=== PATIENT | male | born 1950 | race Two or more races ===

== ENCOUNTER 2017-12-29 11:16 | Inpatient (IN) | payer OTHER ==
[~2017-12-29] VITALS: Ht 162.6 cm; Wt 61.3 kg
[2017-12-29 12:10] LABS: Basophils # (auto) 0 uL; Basophils % (auto) 0.2 % (0.0-2.0); Eosinophils # (auto) 0.2 uL; Eosinophils % (auto) 4.1 % (0.0-7.0); Hemoglobin 11.3 g/dL (13.5-17.5); Lymphocytes # (auto) 0.5 uL; Lymphocytes % (auto) 12.7 % (10.0-50.0); Mean Corpuscular Hemoglobin 29.6 pg (28.0-32.0); Mean Corpuscular Hgb Conc. 32.4 g/dL (32.0-36.0); Mean Corpuscular Volume 91.4 fL (80.0-100.0); Monocytes # (auto) 0.4 uL; Monocytes % (auto) 10.2 % (0.0-12.0); Neutrophils # (auto) 2.9 uL; Neutrophils % (auto) 72.8 % (37.0-80.0); Platelet Count (auto) 123 10^3/uL (140-450); Red Blood Cells 3.83 10^6/uL (4.5-5.90); Red Cell Distribution Width 16.2 % (11.8-14.3)
[2017-12-29 12:22] LABS: Partial Thromboplastin Time 59.9 sec (22.64-33.71); Prothrombin Time 10.9 sec (9.37-12.3)
[2017-12-29 12:23] LABS: Albumin 3.3 g/dL (3.4-5.0); BUN/Creatinine Ratio 10.7; Calcium 8.6 mg/dL (8.5-10.1); Potassium 4.8 mmol/L (3.5-5.1)
[2017-12-29 12:25] LABS: Bilirubin, Total 0.4 mg/dL (0.2-1.0); Total Protein 7.8 g/dL (6.4-8.2)
[2017-12-29] MEDS ORDERED: FUROSEMIDE 100 MG/10ML VIAL IV ONE (15:00)
[2017-12-29] MEDS ORDERED: cloNIDine HCL 0.1 MG TAB PO ONE (15:00)
[2017-12-29] MEDS ORDERED: MORPHINE SULFATE 4 MG/ML SYR/VIAL IV PRN ×2 (15:00)
[2017-12-29] MEDS ORDERED: NITROGLYCERIN 0.4 MG SL TAB SL PRN (15:00)
[2017-12-29] MEDS ORDERED: PROMETHAZINE HCL 25 MG/ML 1ML IV PRN (15:00)
[2017-12-29] MEDS ORDERED: hydrALAZINE HCL 20 MG/ML VL IV PRN (15:00)
[2017-12-29] MEDS: CALCIUM ACETATE 667 MG CAP PO SCH (18:09)
[2017-12-29 20:30] VITALS: BP 150/83
[2017-12-29] MEDS: cloNIDine HCL 0.1 MG TAB PO SCH (21:36)
[2017-12-29 22:00] VITALS: BP 150/83
[2017-12-30 05:00] VITALS: BP 138/84
[2017-12-30 06:04] LABS: Calcium 8.6 mg/dL (8.5-10.1)
[2017-12-30 06:15] LABS: BUN/Creatinine Ratio 11.4
[2017-12-30 06:19] LABS: Potassium 5.7 mmol/L (3.5-5.1)
[2017-12-30] MEDS: CALCIUM ACETATE 667 MG CAP PO SCH ×3 (08:09→20:06)
[2017-12-30 08:18] VITALS: BP 151/91
[2017-12-30] MEDS ORDERED: CATHFLO ACTIVASE (ALTEPLASE) 2 MG VIAL IV ONE (08:45)
[2017-12-30] MEDS ORDERED: LIDOCAINE 2%HCL (LOCAL ANESTH.) INJ 20ML MDV ONE (10:31)
[2017-12-30] MEDS: B-COMPLEX W/ C & FOLIC ACID(NEPHROVITE TAB) PO SCH (10:45)
[2017-12-30] MEDS: cloNIDine HCL 0.1 MG TAB PO SCH ×2 (11:14→21:41)
[2017-12-30] MEDS ORDERED: fentaNYL CITRATE 100 MCG/2 ML VL ONE (12:50)
[2017-12-30] MEDS ORDERED: MIDAZOLAM HCL 1MG/1ML-2 ML VIAL ONE (12:50)
[2017-12-30] MEDS ORDERED: ceFAZolin 1GM/100ML 100 ML IV ONE (13:01)
[2017-12-30] MEDS ORDERED: IODIXANOL 320MG/ML 100ML BTL IV ONE (13:33)
[2017-12-30] MEDS ORDERED: HEPARIN SODIUM (PORCINE) 5000 UNITS/ML 1ML VIAL ONE (13:45)
[2017-12-30] MEDS ORDERED: EPOETIN ALFA 10,000 UNIT/1 ML VIAL IV ONE (15:15)
[2017-12-30 17:00] VITALS: BP 140/87
[2017-12-30 19:38] VITALS: BP 114/71
[2017-12-30] MEDS: HYDROcodone-ACET 5/325MG TAB PO PRN (20:06)
[2017-12-30 22:00] VITALS: BP 121/67
[2017-12-31] VITALS (7 sets, daily range): BP systolic 123–137; BP diastolic 71–82
[2017-12-31 07:11] LABS: Basophils # (auto) 0 uL; Basophils % (auto) 0.3 % (0.0-2.0); Eosinophils # (auto) 0.2 uL; Eosinophils % (auto) 4.3 % (0.0-7.0); Hematocrit 33.1 % (41.0-53.0); Hemoglobin 10.9 g/dL (13.5-17.5); Lymphocytes # (auto) 0.5 uL; Lymphocytes % (auto) 12.6 % (10.0-50.0); Mean Corpuscular Hemoglobin 30.2 pg (28.0-32.0); Mean Corpuscular Volume 91.6 fL (80.0-100.0); Monocytes # (auto) 0.6 uL; Monocytes % (auto) 16.7 % (0.0-12.0); Neutrophils # (auto) 2.4 uL; Neutrophils % (auto) 66.1 % (37.0-80.0); Nucleated Red Blood Cells % 0.3 %; Platelet Count (auto) 93 10^3/uL (140-450); Red Blood Cells 3.62 10^6/uL (4.5-5.90); Red Cell Distribution Width 15.9 % (11.8-14.3); White Blood Cell 3.6 10^3/uL (4.4-10.8)
[2017-12-31 07:15] LABS: BUN/Creatinine Ratio 9.9; Calcium 8.3 mg/dL (8.5-10.1); Potassium 5.1 mmol/L (3.5-5.1)
[2017-12-31] MEDS: CALCIUM ACETATE 667 MG CAP PO SCH ×3 (08:06→18:25)
[2017-12-31] MEDS: cloNIDine HCL 0.1 MG TAB PO SCH ×2 (09:45→21:55)
[2017-12-31] MEDS: B-COMPLEX W/ C & FOLIC ACID(NEPHROVITE TAB) PO SCH (09:46)
[2017-12-31] MEDS: HYDROcodone-ACET 5/325MG TAB PO PRN (21:55)
[2018-01-01 05:35] VITALS: BP 114/67
[2018-01-01] MEDS: CALCIUM ACETATE 667 MG CAP PO SCH ×2 (08:41→12:00)
[2018-01-01 09:00] VITALS: BP 111/66
[2018-01-01] MEDS: cloNIDine HCL 0.1 MG TAB PO SCH (10:25)
[2018-01-01] MEDS: B-COMPLEX W/ C & FOLIC ACID(NEPHROVITE TAB) PO SCH (10:26)
[2018-01-01 10:33] LABS: BUN/Creatinine Ratio 8.6; Calcium 8.1 mg/dL (8.5-10.1); Potassium 4.7 mmol/L (3.5-5.1)
[2018-01-01] MEDS: HYDROcodone-ACET 5/325MG TAB PO PRN (10:41)
[2018-01-01 13:00] VITALS: BP 114/64
== END 2018-01-01 14:10 | disposition home or self-care (01) | DRG 466 ==
LOC: ER 11:16 → OVERFLOW 11:17 → WEST WING 20:15 → TELE-WESTW 12-30 00:26
PROVIDERS: ADMIT Internal Medicine; ATTEND Internal Medicine
PROC: 5A1D70Z Performance of Urinary Filtration, Intermittent, Less than 6 Hours Per Day (ICD-10-PCS; principal; 2017-12-30)
PROC: 06PYX3Z Removal of Infusion Device from Lower Vein, External Approach (ICD-10-PCS; 2017-12-30)
PROC: 06HM33Z Insertion of Infusion Device into Right Femoral Vein, Percutaneous Approach (ICD-10-PCS; 2017-12-30)
PROC: 5A1D70Z Performance of Urinary Filtration, Intermittent, Less than 6 Hours Per Day (ICD-10-PCS; 2017-12-31)
DX: T82.41XA Breakdown (mechanical) of vascular dialysis catheter, initial encounter (principal); N18.6 End stage renal disease; I50.43 Acute on chronic combined systolic (congestive) and diastolic (congestive) heart failure; N25.81 Secondary hyperparathyroidism of renal origin; E11.22 Type 2 diabetes mellitus with diabetic chronic kidney disease; E87.5 Hyperkalemia; E87.70 Fluid overload, unspecified; I13.2 Hypertensive heart and chronic kidney disease with heart failure and with stage 5 chronic kidney disease, or end stage renal disease; Y71.2 Prosthetic and other implants, materials and accessory cardiovascular devices associated with adverse incidents; D63.1 Anemia in chronic kidney disease; Z88.6 Allergy status to analgesic agent; Z99.2 Dependence on renal dialysis
CPT/HCPCS: 36415; 36558; 71045; 76937; 80048; 80053; 82962; 83036; 83880; 84484; 85025; 85610; 85730; 87081; 90935; 93005; 93306; 96374; 99152; 99291; J0690; J0885; J2250; Q9967